=== PATIENT | male | born 1960 | race Caucasian/White ===

== ENCOUNTER 2023-07-16 12:18 | Inpatient (IN) | payer OTHER, MEDICAID ==
[~2023-07-16] VITALS: Ht 188 cm; Wt 79.4 kg
[2023-07-16 12:24] VITALS: BP 129/64; PULSE 16; TEMP 98.9; O2SAT 95
[2023-07-16 13:15] VITALS: O2SAT 95
[2023-07-16 13:29] LABS: BASOPHILS % (AUTO) 0.3 % (0.0-2.0); EOSINOPHILS % (AUTO) 0.4 % (0.0-4.0); LYMPHOCYTES # (AUTO) 0.9 K/uL (2.0-11.5); LYMPHOCYTES % (AUTO) 13.6 % (20.5-51.1); MEAN CORPUSCULAR HEMOGLOBIN 32 pg (27-31); MEAN CORPUSCULAR HGB CONC 33 g/dL (33-37); MEAN CORPUSCULAR VOLUME 94.7 fL (80-94); MONOCYTES # (AUTO) 0.6 K/uL (0.8-1.0); MONOCYTES % (AUTO) 8.8 % (1.7-9.3); NEUTROPHILS # (AUTO) 5.2 K/uL (1.8-7.7); NEUTROPHILS % (AUTO) 76.9 % (42.2-75.2); PLATELET COUNT (AUTO) 236 K/uL (140-450); RED BLOOD CELL COUNT(AUTO) 3.17 MIL/uL (4.20-6.10); RED CELL DISTRIBUTION WIDTH 14.4 % (11.6-13.7); WHITE BLOOD COUNT (AUTO) 6.8 K/uL (4.8-10.8)
[2023-07-16 14:04] LABS: ALANINE AMINOTRANSFERASE 8 U/L (12-78); ALBUMIN 2.1 g/dL (3.4-5.0); ALKALINE PHOSPHATASE 101 U/L (50-136); ANION GAP 14.9 (8-16); ASPARTATE AMINOTRANSFERASE 11 U/L (15-37); CALCIUM 8.6 mg/dL (8.5-10.1); CARBON DIOXIDE 26.7 mmol/L (21-32); CHLORIDE 97 mmol/L (98-107); GFR ARICAN-AMERICAN 12 mL/min (>90); GFR NON ARICAN-AMERICAN 10 mL/min (>90); GLUCOSE 193 mg/dL (74-106); POTASSIUM 3.6 mmol/L (3.5-5.1); SODIUM SERUM 135 mmol/L (136-145); TOTAL BILIRUBIN 0.4 mg/dL (0.0-1.0); UREA NITROGEN, BLOOD 47 mg/dL (7-18)
[2023-07-16] MEDS ORDERED: NACL 0.9% 500 ML IV SCH (14:45)
[2023-07-16] MEDS ORDERED: KETOROLAC 30 MG/ML VIAL IVP ONE (14:45)
[2023-07-16] MEDS ORDERED: cefTRIAXone 1,000 MG in DEXT 5% MINI-BAG PLUS 50 ML IV ONE (14:45)
[2023-07-16] MEDS ORDERED: cefTRIAXone 1,000 MG VIAL ONE (14:57)
[2023-07-16] MEDS ORDERED: ALBUTEROL 0.083% 2.5 MG/3 ML NEBU INH PRN (15:10)
[2023-07-16] MEDS ORDERED: ONDANSETRON 4 MG/2 ML VIAL IVP PRN (15:10)
[2023-07-16 15:12] LABS: LACTIC ACID 1.5 mmol/L (0.4-2.0)
[2023-07-16] MEDS ORDERED: HYDROcodone/APAP 5/325 MG 1 TAB TAB PO PRN (15:15)
[2023-07-16 18:00] VITALS: BP 128/64; RESP 18; TEMP 98.9; O2SAT 96
[2023-07-16 20:00] VITALS: RESP 18; O2SAT 97
[2023-07-16] MEDS ORDERED: oxyCODONE/APAP 5/325 MG 1 TAB TAB PO PRN (20:45)
[2023-07-16] MEDS ORDERED: DEXTROSE 50% 50 ML SYR IVP PRN (20:55)
[2023-07-16] MEDS ORDERED: CEFEPIME 1,000 MG VIAL ONE (21:37)
[2023-07-16] MEDS: INSULIN LISPRO SLIDING SCALE 100 UNITS/ML VIAL SUBQ PRN (21:41)
[2023-07-16] MEDS: BLOOD GLUCOSE MONITORING 1 DEV DEV FS SCH (21:41)
[2023-07-16] MEDS: CEFEPIME 500 MG in DEXTROSE 5% 50 ML IV SCH (21:42)
[2023-07-16 22:20] VITALS: PULSE 90; RESP 16; O2SAT 95
[2023-07-17 04:00] VITALS: BP 105/50; PULSE 82; RESP 16; TEMP 97.6; O2SAT 98
[2023-07-17] MEDS: BLOOD GLUCOSE MONITORING 1 DEV DEV FS SCH ×4 (06:27→20:22)
[2023-07-17] MEDS: INSULIN LISPRO SLIDING SCALE 100 UNITS/ML VIAL SUBQ PRN ×2 (06:27→12:15)
[2023-07-17 06:34] LABS: ANION GAP 15.3 (8-16); CALCIUM 8.5 mg/dL (8.5-10.1); CARBON DIOXIDE 27.6 mmol/L (21-32); POTASSIUM 3.9 mmol/L (3.5-5.1)
[2023-07-17 06:37] LABS: BASOPHILS % (AUTO) 0.4 % (0.0-2.0); EOSINOPHILS # (AUTO) 0.1 K/uL (0-0.4); HEMATOCRIT 26.9 % (36-52); HEMOGLOBIN 8.9 g/dL (12.0-18.0); LYMPHOCYTES # (AUTO) 0.9 K/uL (2.0-11.5); LYMPHOCYTES % (AUTO) 15.6 % (20.5-51.1); MEAN CORPUSCULAR HEMOGLOBIN 32 pg (27-31); MEAN CORPUSCULAR HGB CONC 33 g/dL (33-37); MEAN CORPUSCULAR VOLUME 94.8 fL (80-94); MONOCYTES # (AUTO) 0.6 K/uL (0.8-1.0); MONOCYTES % (AUTO) 9.9 % (1.7-9.3); NEUTROPHILS # (AUTO) 4.3 K/uL (1.8-7.7); NEUTROPHILS % (AUTO) 73.1 % (42.2-75.2); PLATELET COUNT (AUTO) 239 K/uL (140-450); RED BLOOD CELL COUNT(AUTO) 2.83 MIL/uL (4.20-6.10); RED CELL DISTRIBUTION WIDTH 14.1 % (11.6-13.7); WHITE BLOOD COUNT (AUTO) 5.9 K/uL (4.8-10.8)
[2023-07-17 06:45] LABS: PHOSPHORUS 4.9 mg/dL (2.5-4.9); URIC ACID 5.8 mg/dL (2.6-7.2)
[2023-07-17 08:00] VITALS: RESP 20; TEMP 98.1; O2SAT 99
[2023-07-17 17:23] VITALS: O2SAT 98
[2023-07-17 20:00] VITALS: BP 110/62; PULSE 88; RESP 16; TEMP 97.6; O2SAT 99
[2023-07-17] MEDS: CEFEPIME 500 MG in DEXTROSE 5% 50 ML IV SCH (20:21)
[2023-07-18] VITALS (7 sets, daily range): BP systolic 99–127; BP diastolic 65–71; PULSE 84–93; RESP 16–20; TEMP 97.3–98.6; O2SAT 95–99
[2023-07-18] MEDS: INSULIN LISPRO SLIDING SCALE 100 UNITS/ML VIAL SUBQ PRN ×2 (06:34→13:21)
[2023-07-18] MEDS: BLOOD GLUCOSE MONITORING 1 DEV DEV FS SCH ×4 (06:34→21:41)
[2023-07-18 07:12] LABS: BASOPHILS % (AUTO) 0.6 % (0.0-2.0); EOSINOPHILS # (AUTO) 0.1 K/uL (0-0.4); EOSINOPHILS % (AUTO) 1.5 % (0.0-4.0); HEMATOCRIT 26.9 % (36-52); HEMOGLOBIN 8.9 g/dL (12.0-18.0); LYMPHOCYTES # (AUTO) 1.2 K/uL (2.0-11.5); LYMPHOCYTES % (AUTO) 19.8 % (20.5-51.1); MEAN CORPUSCULAR HEMOGLOBIN 32 pg (27-31); MEAN CORPUSCULAR HGB CONC 33 g/dL (33-37); MONOCYTES # (AUTO) 0.5 K/uL (0.8-1.0); MONOCYTES % (AUTO) 9.2 % (1.7-9.3); NEUTROPHILS % (AUTO) 68.9 % (42.2-75.2); PLATELET COUNT (AUTO) 280 K/uL (140-450); RED CELL DISTRIBUTION WIDTH 14.2 % (11.6-13.7); WHITE BLOOD COUNT (AUTO) 5.9 K/uL (4.8-10.8)
[2023-07-18 07:17] LABS: ANION GAP 16.9 (8-16); CALCIUM 8.3 mg/dL (8.5-10.1); CARBON DIOXIDE 26.3 mmol/L (21-32); POTASSIUM 4.2 mmol/L (3.5-5.1)
[2023-07-18] MEDS: GAUZE TP SCH (13:29)
[2023-07-18] MEDS ORDERED: CEFEPIME 1,000 MG VIAL ONE (21:20)
[2023-07-18] MEDS: CEFEPIME 500 MG in DEXTROSE 5% 50 ML IV SCH (21:41)
[2023-07-18] MEDS: NACL 0.9% IRR 250 ML BOTTLE IR SCH (21:42)
[2023-07-19 04:00] VITALS: BP 125/61; PULSE 82; RESP 18; TEMP 97.1; O2SAT 96
[2023-07-19] MEDS: BLOOD GLUCOSE MONITORING 1 DEV DEV FS SCH ×4 (06:39→20:44)
[2023-07-19 06:50] LABS: BASOPHILS % (AUTO) 1.1 % (0.0-2.0); EOSINOPHILS # (AUTO) 0.1 K/uL (0-0.4); EOSINOPHILS % (AUTO) 2.7 % (0.0-4.0); HEMATOCRIT 61.1 % (36-52); HEMOGLOBIN 19.8 g/dL (12.0-18.0); LYMPHOCYTES # (AUTO) 1.2 K/uL (2.0-11.5); LYMPHOCYTES % (AUTO) 28.8 % (20.5-51.1); MEAN CORPUSCULAR HEMOGLOBIN 31 pg (27-31); MEAN CORPUSCULAR HGB CONC 33 g/dL (33-37); MEAN CORPUSCULAR VOLUME 95.1 fL (80-94); MONOCYTES # (AUTO) 0.3 K/uL (0.8-1.0); MONOCYTES % (AUTO) 7.5 % (1.7-9.3); NEUTROPHILS # (AUTO) 2.4 K/uL (1.8-7.7); NEUTROPHILS % (AUTO) 59.9 % (42.2-75.2); PLATELET COUNT (AUTO) 128 K/uL (140-450); RED BLOOD CELL COUNT(AUTO) 6.42 MIL/uL (4.20-6.10)
[2023-07-19 07:15] LABS: ANION GAP 21.4 (8-16); CARBON DIOXIDE 22.6 mmol/L (21-32)
[2023-07-19 07:31] LABS: CALCIUM 8.3 mg/dL (8.5-10.1)
[2023-07-19 08:00] VITALS: PULSE 85; RESP 18; TEMP 98; O2SAT 98
[2023-07-19 08:44] VITALS: O2SAT 96
[2023-07-19] MEDS: NACL 0.9% IRR 250 ML BOTTLE IR SCH (09:00)
[2023-07-19] MEDS: VIT-B COMP/VIT-C/FOLIC ACID 1 TAB PO SCH (09:48)
[2023-07-19 10:47] LABS: EOSINOPHILS # (AUTO) 0.1 K/uL (0-0.4); EOSINOPHILS % (AUTO) 1.2 % (0.0-4.0); HEMATOCRIT 26.8 % (36-52); HEMOGLOBIN 8.8 g/dL (12.0-18.0); LYMPHOCYTES % (AUTO) 19.6 % (20.5-51.1); MEAN CORPUSCULAR HEMOGLOBIN 32 pg (27-31); MEAN CORPUSCULAR HGB CONC 33 g/dL (33-37); MEAN CORPUSCULAR VOLUME 95.2 fL (80-94); MONOCYTES # (AUTO) 0.4 K/uL (0.8-1.0); MONOCYTES % (AUTO) 8.2 % (1.7-9.3); NEUTROPHILS # (AUTO) 3.6 K/uL (1.8-7.7); PLATELET COUNT (AUTO) 319 K/uL (140-450); RED BLOOD CELL COUNT(AUTO) 2.81 MIL/uL (4.20-6.10); RED CELL DISTRIBUTION WIDTH 14.3 % (11.6-13.7); WHITE BLOOD COUNT (AUTO) 5.1 K/uL (4.8-10.8)
[2023-07-19 12:00] VITALS: BP 124/79; PULSE 90; RESP 20; TEMP 98.7; O2SAT 99
[2023-07-19] MEDS: GAUZE TP SCH (13:00)
[2023-07-19] MEDS: INSULIN LISPRO SLIDING SCALE 100 UNITS/ML VIAL SUBQ PRN (14:29)
[2023-07-19 20:00] VITALS: BP 102/62; PULSE 97; RESP 20; TEMP 96.8; O2SAT 97
[2023-07-19] MEDS: AMPICILLIN/SULBACTAM 1.5 GM in NACL 0.9% 50 ML IV SCH (20:43)
[2023-07-19 20:44] VITALS: O2SAT 99
[2023-07-20 04:00] VITALS: BP 115/65; PULSE 87; RESP 18; TEMP 97.3; O2SAT 96
[2023-07-20] MEDS ORDERED: BUPIVACAINE-MPF 0.25% 30 ML VIAL INJ ONE (06:43)
[2023-07-20] MEDS ORDERED: LIDOCAINE/EPI MPF 1%1:200000 30 ML VIAL INJ ONE (06:43)
[2023-07-20] MEDS: BLOOD GLUCOSE MONITORING 1 DEV DEV FS SCH ×4 (06:44→20:30)
[2023-07-20 06:46] LABS: ANION GAP 21.4 (8-16); POTASSIUM 4.4 mmol/L (3.5-5.1)
[2023-07-20] MEDS ORDERED: MIDAZOLAM 5 MG/5 ML VIAL ONE (06:54)
[2023-07-20] MEDS ORDERED: fentaNYL citrate 0.05 MG/ML VIAL ONE (07:00)
[2023-07-20 07:21] LABS: BASOPHILS % (AUTO) 0.6 % (0.0-2.0); EOSINOPHILS # (AUTO) 0.1 K/uL (0-0.4); EOSINOPHILS % (AUTO) 1.3 % (0.0-4.0); HEMATOCRIT 25.4 % (36-52); HEMOGLOBIN 8.5 g/dL (12.0-18.0); LYMPHOCYTES # (AUTO) 1.1 K/uL (2.0-11.5); MEAN CORPUSCULAR HEMOGLOBIN 31 pg (27-31); MEAN CORPUSCULAR HGB CONC 33 g/dL (33-37); MEAN CORPUSCULAR VOLUME 94.1 fL (80-94); MONOCYTES # (AUTO) 0.5 K/uL (0.8-1.0); MONOCYTES % (AUTO) 10.1 % (1.7-9.3); NEUTROPHILS # (AUTO) 3.3 K/uL (1.8-7.7); PLATELET COUNT (AUTO) 343 K/uL (140-450); RED CELL DISTRIBUTION WIDTH 13.9 % (11.6-13.7)
[2023-07-20] MEDS ORDERED: ONDANSETRON 4 MG/2 ML VIAL ONE (07:47)
[2023-07-20] MEDS ORDERED: PHENYLEPHRINE 10 MG/ML VIAL ONE (07:47)
[2023-07-20] MEDS ORDERED: ePHEDrine 50 MG/ML VIAL ONE (07:47)
[2023-07-20] MEDS ORDERED: PROPOFOL 200 MG/20 ML VIAL IV ONE (07:48)
[2023-07-20 08:00] VITALS: PULSE 99; RESP 20; TEMP 97.5; O2SAT 97
[2023-07-20 08:43] VITALS: O2SAT 97
[2023-07-20] MEDS: NACL 0.9% IRR 250 ML BOTTLE IR SCH (09:49)
[2023-07-20] MEDS: VIT-B COMP/VIT-C/FOLIC ACID 1 TAB PO SCH (09:49)
[2023-07-20] MEDS: AMPICILLIN/SULBACTAM 1.5 GM in NACL 0.9% 50 ML IV SCH ×2 (09:50→20:27)
[2023-07-20 18:49] VITALS: O2SAT 99
[2023-07-20 20:00] VITALS: BP 113/63; PULSE 106; PULSE 95; RESP 18; TEMP 97.6; O2SAT 95
[2023-07-20] MEDS ORDERED: ZOLPIDEM 5 MG TAB PO PRN (20:45)
[2023-07-21 04:00] VITALS: BP 133/66; PULSE 95; RESP 18; TEMP 97.2; O2SAT 99
[2023-07-21] MEDS: BLOOD GLUCOSE MONITORING 1 DEV DEV FS SCH (06:32)
[2023-07-21 07:19] LABS: BASOPHILS % (AUTO) 0.4 % (0.0-2.0); EOSINOPHILS % (AUTO) 0.8 % (0.0-4.0); HEMATOCRIT 23.6 % (36-52); HEMOGLOBIN 7.8 g/dL (12.0-18.0); LYMPHOCYTES # (AUTO) 0.8 K/uL (2.0-11.5); LYMPHOCYTES % (AUTO) 17.3 % (20.5-51.1); MEAN CORPUSCULAR HEMOGLOBIN 32 pg (27-31); MEAN CORPUSCULAR HGB CONC 33 g/dL (33-37); MONOCYTES # (AUTO) 0.5 K/uL (0.8-1.0); MONOCYTES % (AUTO) 10.9 % (1.7-9.3); NEUTROPHILS # (AUTO) 3.4 K/uL (1.8-7.7); NEUTROPHILS % (AUTO) 70.6 % (42.2-75.2); PLATELET COUNT (AUTO) 316 K/uL (140-450); RED BLOOD CELL COUNT(AUTO) 2.48 MIL/uL (4.20-6.10); RED CELL DISTRIBUTION WIDTH 14.1 % (11.6-13.7); WHITE BLOOD COUNT (AUTO) 4.8 K/uL (4.8-10.8)
[2023-07-21 07:50] LABS: CALCIUM 8.2 mg/dL (8.5-10.1); CARBON DIOXIDE 28.4 mmol/L (21-32); POTASSIUM 4.4 mmol/L (3.5-5.1)
[2023-07-21 07:56] LABS: CREATININE 6.4 mg/dL (0.6-1.3)
[2023-07-21 08:24] VITALS: O2SAT 98
[2023-07-21] MEDS ORDERED: AMOX-999 PO (11:37)
[2023-07-21] MEDS ORDERED: AMPI1PDS18 IV (11:37)
[2023-07-21 11:47] VITALS: BP 133/66; PULSE 95; RESP 18; TEMP 97.2
[2023-07-21] MEDS ORDERED: CALCIUM ACETATE 667 MG TAB PO SCH (12:00)
[2023-07-23] MEDS ORDERED: EPOETIN ALFA 10,000 UNITS/ML VIAL SUBQ SCH (09:00)
== END 2023-07-21 13:42 | disposition home or self-care (01) | DRG 982 ==
LOC: MED 12:18 → MTU 15:13
PROVIDERS: ADMIT Internal Medicine; ATTEND Internal Medicine
PROC: 0QBF0ZZ Excision of Left Patella, Open Approach (ICD-10-PCS; principal; 2023-07-20 07:00)
DX: E11.69 Type 2 diabetes mellitus with other specified complication (principal); I12.0 Hypertensive chronic kidney disease with stage 5 chronic kidney disease or end stage renal disease; M86.8X6 Other osteomyelitis, lower leg; L03.116 Cellulitis of left lower limb; E11.51 Type 2 diabetes mellitus with diabetic peripheral angiopathy without gangrene; N18.6 End stage renal disease; S91.302A Unspecified open wound, left foot, initial encounter; X58.XXXA Exposure to other specified factors, initial encounter; E83.39 Other disorders of phosphorus metabolism; E11.22 Type 2 diabetes mellitus with diabetic chronic kidney disease; D64.9 Anemia, unspecified; Z87.891 Personal history of nicotine dependence; Z89.511 Acquired absence of right leg below knee; Z89.512 Acquired absence of left leg below knee; Z91.199 Patient's noncompliance with other medical treatment and regimen due to unspecified reason; Z99.2 Dependence on renal dialysis; Y93.89 Activity, other specified; Y92.89 Other specified places as the place of occurrence of the external cause; Y99.8 Other external cause status
CPT/HCPCS: 36415; 71045; 73562; 78315; 80048; 80053; 82948; 83036; 83605; 84100; 84484; 84550; 85025; 85651; 86140; 87040; 87070; 87075; 87081; 87186; 87205; 93005; 96374; 96375; 97163-GP; 99285; J0295; J0692; J0696; J1644; J1815; J1885; J2001; J2250; J2370; J2405; J2704; J3010; J3490; J7030; J7060

== ENCOUNTER 2023-12-11 17:03 | Inpatient (IN) | payer OTHER, MEDICAID ==
[~2023-12-11] VITALS: Ht 188 cm; Wt 80.7 kg
[~2023-12-11 17:03] MED LIST: AMOX-999 PO; AMPI1PDS18 IV
[2023-12-11 17:07] VITALS: BP 113/62; PULSE 100; RESP 16; TEMP 99.3; O2SAT 98
[2023-12-11] MEDS: ACETAMINOPHEN EXTRA STRENGTH 500 MG TAB PO ONE (17:43)
[2023-12-11 18:09] LABS: ANION GAP 18.2 (8-16); CALCIUM 7.9 mg/dL (8.5-10.1); CARBON DIOXIDE 23.9 mmol/L (21-32); POTASSIUM 5.1 mmol/L (3.5-5.1)
[2023-12-11 18:14] LABS: CREATININE 9.6 mg/dL (0.6-1.3)
[2023-12-11 18:22] LABS: AMPHETAMINE, URINE NEGATIVE ng/ml (NEG <=1000); BARBITURATE, URINE NEGATIVE ng/ml (NEG <=200); BENZODIAZEPINE, URINE NEGATIVE ng/mL (NEG <=200); CANNABINOID, URINE NEGATIVE ng/mL (NEG <=50); COCAINE, URINE NEGATIVE ng/mL (NEG <=300); OPIATE, URINE NEGATIVE ng/mL (NEG <=2000); PHENCYCLIDINE SCREEN,URINE NEGATIVE ng/mL (NEG <=25)
[2023-12-11] MEDS: MORPHINE SULFATE 4 MG/ML SYR IM ONE (18:48)
[2023-12-11 19:10] LABS: BASOPHILS % (AUTO) 0.2 % (0.0-2.0); EOSINOPHILS % (AUTO) 0.2 % (0.0-4.0); HEMATOCRIT 31.7 % (36-52); HEMOGLOBIN 10.7 g/dL (12.0-18.0); LYMPHOCYTES % (AUTO) 12.9 % (20.5-51.1); MEAN CORPUSCULAR HEMOGLOBIN 31 pg (27-31); MEAN CORPUSCULAR HGB CONC 34 g/dL (33-37); MEAN CORPUSCULAR VOLUME 91.7 fL (80-94); MONOCYTES # (AUTO) 0.7 K/uL (0.8-1.0); MONOCYTES % (AUTO) 8.8 % (1.7-9.3); NEUTROPHILS # (AUTO) 6.1 K/uL (1.8-7.7); NEUTROPHILS % (AUTO) 77.9 % (42.2-75.2); PLATELET COUNT (AUTO) 206 K/uL (140-450); RED BLOOD CELL COUNT(AUTO) 3.46 MIL/uL (4.20-6.10); RED CELL DISTRIBUTION WIDTH 15.3 % (11.6-13.7); WHITE BLOOD COUNT (AUTO) 7.9 K/uL (4.8-10.8)
[2023-12-11] MEDS ORDERED: LORazepam 2 MG/ML VIAL IVP PRN (21:10)
[2023-12-11] MEDS ORDERED: ALBUTEROL 0.083% 2.5 MG/3 ML NEBU INH PRN (21:10)
[2023-12-11] MEDS ORDERED: ONDANSETRON 4 MG/2 ML VIAL IVP PRN (21:10)
[2023-12-11] MEDS ORDERED: DEXTROSE 50% 50 ML SYR IVP PRN (21:15)
[2023-12-11] MEDS: NACL 0.9% 500 ML IV ONE (21:22)
[2023-12-11] MEDS: SODIUM ZIRCONIUM CYCLOSILICATE 10 GM POWD.PACK PO ONE (22:04)
[2023-12-11 22:25] VITALS: PULSE 95; RESP 18; O2SAT 97
[2023-12-12] VITALS: BP 109/52; PULSE 91; RESP 18; TEMP 97.6; O2SAT 97
[2023-12-12] MEDS: HYDROcodone/APAP 5/325 MG 1 TAB TAB PO PRN (00:30)
[2023-12-12] MEDS: ACETAMINOPHEN 325 MG TAB PO PRN (03:30)
[2023-12-12 04:00] VITALS: BP 106/41; PULSE 85; PULSE 91; RESP 18; TEMP 97.6; O2SAT 96
[2023-12-12 06:33] LABS: BASOPHILS % (AUTO) 0.5 % (0.0-2.0); EOSINOPHILS # (AUTO) 0.1 K/uL (0-0.4); EOSINOPHILS % (AUTO) 0.7 % (0.0-4.0); HEMATOCRIT 30.6 % (36-52); LYMPHOCYTES % (AUTO) 12.8 % (20.5-51.1); MEAN CORPUSCULAR HEMOGLOBIN 31 pg (27-31); MEAN CORPUSCULAR HGB CONC 33 g/dL (33-37); MEAN CORPUSCULAR VOLUME 93.4 fL (80-94); MONOCYTES # (AUTO) 0.7 K/uL (0.8-1.0); MONOCYTES % (AUTO) 8.8 % (1.7-9.3); NEUTROPHILS # (AUTO) 5.8 K/uL (1.8-7.7); NEUTROPHILS % (AUTO) 77.2 % (42.2-75.2); PLATELET COUNT (AUTO) 197 K/uL (140-450); RED BLOOD CELL COUNT(AUTO) 3.27 MIL/uL (4.20-6.10); RED CELL DISTRIBUTION WIDTH 15.4 % (11.6-13.7); WHITE BLOOD COUNT (AUTO) 7.5 K/uL (4.8-10.8)
[2023-12-12] MEDS: BLOOD GLUCOSE MONITORING 1 DEV DEV FS SCH (06:46)
[2023-12-12 06:53] LABS: ANION GAP 18.3 (8-16); CALCIUM 7.7 mg/dL (8.5-10.1); CARBON DIOXIDE 24.4 mmol/L (21-32); POTASSIUM 4.7 mmol/L (3.5-5.1)
[2023-12-12 07:00] LABS: CREATININE 10.4 mg/dL (0.6-1.3)
[2023-12-12 08:00] VITALS: BP 96/50; PULSE 105; PULSE 93; RESP 18; TEMP 97.7; O2SAT 94
[2023-12-12 12:46] VITALS: BP 128/58; PULSE 91; PULSE 93; RESP 18; TEMP 97.6; O2SAT 98
[2023-12-12 16:00] VITALS: BP 97/52; PULSE 105; PULSE 108; RESP 18; TEMP 97.2; O2SAT 97
[2023-12-12 20:00] VITALS: BP 107/51; PULSE 101; PULSE 105; RESP 18; TEMP 97.6; O2SAT 96
[2023-12-13] VITALS: BP 110/50; PULSE 100; PULSE 99; RESP 18; TEMP 98.1; O2SAT 96
[2023-12-13] MEDS ORDERED: KETOROLAC 30 MG/ML VIAL IVP PRN (02:05)
[2023-12-13 04:00] VITALS: BP 100/58; PULSE 95; PULSE 96; RESP 18; TEMP 97.6; O2SAT 96
[2023-12-13] MEDS: MORPHINE SULFATE 2 MG/ML SYR IVP PRN (05:31)
[2023-12-13 06:47] LABS: BASOPHILS % (AUTO) 0.4 % (0.0-2.0); EOSINOPHILS % (AUTO) 0.3 % (0.0-4.0); HEMATOCRIT 30.6 % (36-52); LYMPHOCYTES # (AUTO) 0.8 K/uL (2.0-11.5); LYMPHOCYTES % (AUTO) 8.9 % (20.5-51.1); MEAN CORPUSCULAR HEMOGLOBIN 30 pg (27-31); MEAN CORPUSCULAR HGB CONC 33 g/dL (33-37); MEAN CORPUSCULAR VOLUME 92.8 fL (80-94); MONOCYTES # (AUTO) 0.9 K/uL (0.8-1.0); MONOCYTES % (AUTO) 10.3 % (1.7-9.3); NEUTROPHILS # (AUTO) 6.8 K/uL (1.8-7.7); NEUTROPHILS % (AUTO) 80.1 % (42.2-75.2); PLATELET COUNT (AUTO) 198 K/uL (140-450); RED CELL DISTRIBUTION WIDTH 15.5 % (11.6-13.7); WHITE BLOOD COUNT (AUTO) 8.5 K/uL (4.8-10.8)
[2023-12-13 07:13] LABS: ANION GAP 15.4 (8-16); CALCIUM 7.9 mg/dL (8.5-10.1); CARBON DIOXIDE 27.8 mmol/L (21-32); POTASSIUM 4.2 mmol/L (3.5-5.1)
[2023-12-13 07:24] LABS: CREATININE 7.1 mg/dL (0.6-1.3)
[2023-12-13 08:00] VITALS: BP 122/60; PULSE 101; PULSE 86; PULSE 93; RESP 18; TEMP 97.8; TEMP 98.1; O2SAT 97; O2SAT 98
[2023-12-13 12:00] VITALS: BP 99/50; PULSE 92; RESP 18; TEMP 98.2; O2SAT 98
[2023-12-13 16:00] VITALS: BP 99/48; PULSE 89; RESP 18; TEMP 98.4; O2SAT 97
[2023-12-13 20:00] VITALS: BP 100/41; PULSE 101; PULSE 96; RESP 18; TEMP 100.7; TEMP 98.1; O2SAT 95
[2023-12-14 06:55] LABS: BASOPHILS % (AUTO) 0.4 % (0.0-2.0); EOSINOPHILS % (AUTO) 0.4 % (0.0-4.0); HEMATOCRIT 29.3 % (36-52); HEMOGLOBIN 9.7 g/dL (12.0-18.0); LYMPHOCYTES % (AUTO) 11.1 % (20.5-51.1); MEAN CORPUSCULAR HEMOGLOBIN 31 pg (27-31); MEAN CORPUSCULAR HGB CONC 33 g/dL (33-37); MEAN CORPUSCULAR VOLUME 92.4 fL (80-94); MONOCYTES # (AUTO) 0.8 K/uL (0.8-1.0); MONOCYTES % (AUTO) 8.6 % (1.7-9.3); NEUTROPHILS # (AUTO) 7.1 K/uL (1.8-7.7); NEUTROPHILS % (AUTO) 79.5 % (42.2-75.2); PLATELET COUNT (AUTO) 218 K/uL (140-450); RED BLOOD CELL COUNT(AUTO) 3.17 MIL/uL (4.20-6.10); RED CELL DISTRIBUTION WIDTH 15.4 % (11.6-13.7)
[2023-12-14 07:21] LABS: ANION GAP 14.7 (8-16); CALCIUM 7.5 mg/dL (8.5-10.1); CARBON DIOXIDE 27.2 mmol/L (21-32); POTASSIUM 3.9 mmol/L (3.5-5.1)
[2023-12-14 07:25] LABS: CREATININE 8.3 mg/dL (0.6-1.3)
[2023-12-14 08:00] VITALS: PULSE 81; RESP 18; O2SAT 98
[2023-12-14 08:32] VITALS: BP 91/43; PULSE 81; RESP 18; TEMP 97.8; O2SAT 98
[2023-12-14] MEDS: VIT-B COMP/VIT-C/FOLIC ACID 1 TAB PO SCH (09:18)
[2023-12-14 09:49] VITALS: TEMP 97.8
[2023-12-14 16:17] VITALS: BP 110/46; PULSE 81; RESP 18; TEMP 99.5; O2SAT 100
[2023-12-14] MEDS: INSULIN LISPRO SLIDING SCALE 100 UNITS/ML VIAL SUBQ PRN (16:35)
[2023-12-14 20:00] VITALS: BP 95/50; PULSE 105; PULSE 81; RESP 18; TEMP 98.2; O2SAT 93; O2SAT 98
[2023-12-15] VITALS: BP 107/41; PULSE 94; RESP 20; TEMP 98.4; O2SAT 98
[2023-12-15 04:00] VITALS: BP 109/49; PULSE 90; RESP 19; TEMP 97.5; O2SAT 96
[2023-12-15] MEDS ORDERED: VANCOMYCIN PER PHARMACY MC PRN (05:55)
[2023-12-15 08:00] VITALS: BP 118/90; PULSE 97; RESP 18; TEMP 97; O2SAT 99
[2023-12-15 09:47] LABS: ANION GAP 11.6 (8-16); CALCIUM 7.9 mg/dL (8.5-10.1); CARBON DIOXIDE 29.5 mmol/L (21-32); POTASSIUM 4.1 mmol/L (3.5-5.1)
[2023-12-15 09:51] LABS: CREATININE 6.4 mg/dL (0.6-1.3)
== END 2023-12-15 14:38 | disposition home or self-care (01) | DRG 682 ==
LOC: MED 17:03 → MTU 21:29
PROVIDERS: ADMIT Family Medicine; ATTEND Family Medicine
PROC: 5A1D70Z Performance of Urinary Filtration, Intermittent, Less than 6 Hours Per Day (ICD-10-PCS; principal; 2023-12-12)
PROC: 5A1D70Z Performance of Urinary Filtration, Intermittent, Less than 6 Hours Per Day (ICD-10-PCS; 2023-12-14)
DX: I12.0 Hypertensive chronic kidney disease with stage 5 chronic kidney disease or end stage renal disease (principal); N18.6 End stage renal disease; E44.0 Moderate protein-calorie malnutrition; E86.0 Dehydration; M79.662 Pain in left lower leg; D64.9 Anemia, unspecified; E11.22 Type 2 diabetes mellitus with diabetic chronic kidney disease; E11.51 Type 2 diabetes mellitus with diabetic peripheral angiopathy without gangrene; Z68.22 Body mass index [BMI] 22.0-22.9, adult; Z99.2 Dependence on renal dialysis; Z89.512 Acquired absence of left leg below knee; Z87.891 Personal history of nicotine dependence; Z89.511 Acquired absence of right leg below knee
CPT/HCPCS: 36415; 71045; 73562; 80048; 80305; 82550; 82948; 83880; 84484; 85025; 87081; 90935; 96372; 97163-GP; 97530; 99285; J1644; J1815; J2270